=== PATIENT | male | born 1945 | race Caucasian/White ===

== ENCOUNTER 2022-12-30 10:48 | Emergency (ER) | payer OTHER ==
[~2022-12-30] VITALS: Ht 177.8 cm; Wt 99.8 kg
[2022-12-30 11:17] VITALS: BP_SYST 142; PULSE 66; RESP 16; TEMP 97.7; O2SAT 95
[2022-12-30 11:33] LABS: BASOPHILS % (AUTO) 0.5 % (0.0-2.0); EOSINOPHILS # (AUTO) 0.1 K/uL (0.0-0.4); EOSINOPHILS % (AUTO) 1.7 % (0.0-4.0); HEMATOCRIT 39.8 % (36-54); HEMOGLOBIN 13.3 g/dL (14.0-18.0); LYMPHOCYTES # (AUTO) 1.2 K/uL (1.0-5.5); LYMPHOCYTES % (AUTO) 16.7 % (20.5-51.5); MEAN CORPUSCULAR HEMOGLOBIN 30 pg (27-31); MEAN CORPUSCULAR HGB CONC 34 % (32-36); MEAN CORPUSCULAR VOLUME 90 fL (79.0-98.0); MONOCYTES # (AUTO) 0.4 K/uL (0.0-1.0); MONOCYTES % (AUTO) 5.8 % (1.7-9.3); NEUTROPHILS # (AUTO) 5.2 K/uL (1.8-7.7); NEUTROPHILS % (AUTO) 75.3 % (40.0-70.0); PLATELET COUNT (AUTO) 245 K/uL (130-430); RED BLOOD CELL COUNT(AUTO) 4.42 MIL/uL (4.2-6.2); RED CELL DISTRIBUTION WIDTH 14.5 % (9.0-15.0)
[2022-12-30 11:49] LABS: ANION GAP 7 (5-15); CALCIUM 9.2 mg/dL (8.4-11.0); CARBON DIOXIDE 24 mmol/L (23-29); CHLORIDE 106 mmol/L (98-107); CREATININE 1.13 mg/dL (0.55-1.30); GLUCOSE 102 mg/dL (74-106); POTASSIUM 4.1 mmol/L (3.5-5.1); SODIUM SERUM 137 mmol/L (136-145); UREA NITROGEN, BLOOD 24 mg/dL (8-21)
[2022-12-30 11:56] LABS: PROTHROMBIN TIME 10.4 SECS (9.5-12.5)
[2022-12-30 12:10] LABS: ALANINE AMINOTRANSFERASE 34 U/L (12-78); ALBUMIN 3.5 g/dL (3.4-4.8); AMYLASE 62 U/L (0-100); ASPARTATE AMINOTRANSFERASE 22 U/L (10-37); LACTATE DEHYDROGENASE 177 U/L (85-227); LIPASE 30 U/L (16-77); TOTAL BILIRUBIN 0.7 mg/dL (0.0-1.0); TOTAL PROTEIN, SERUM 6.9 g/dL (6.4-8.3)
[2022-12-30 12:19] LABS: ACETONE, SERUM NEGATIVE (NEGATIVE)
[2022-12-30] MEDS ORDERED: IBUP-1971 PO (13:59)
[2022-12-30] MEDS ORDERED: TRAM50TA2 PO (13:59)
[2022-12-30 14:52] VITALS: BP_SYST 130; PULSE 58; RESP 16; TEMP 97.9; O2SAT 96
== END 2022-12-30 14:52 | disposition home or self-care (01) ==
LOC: SED 10:48
DX: R10.11 Right upper quadrant pain (principal); Z79.899 Other long term (current) drug therapy
CPT/HCPCS: 36415; 76376; 80053; 82009; 82150; 83605; 83615; 83690; 84484; 85025; 85610-TC; 85730-TC; 99284